=== PATIENT | female | born 1955 | race African-American/Black ===

== ENCOUNTER → 2016-11-11 | Outpatient (CLI) | payer MEDICARE, MEDICAID | LOC: BHSO 09:45 | DX: F06.32 Mood disorder due to known physiological condition with major depressive-like episode (principal) ==

== ENCOUNTER → 2017-02-04 | Outpatient (CLI) | payer MEDICARE, MEDICAID | LOC: BHSO 11:10 | DX: F06.32 Mood disorder due to known physiological condition with major depressive-like episode (principal) ==

== ENCOUNTER → 2017-02-18 | Outpatient (CLI) | payer MEDICARE, MEDICAID | LOC: BHSO 09:30 | DX: F06.32 Mood disorder due to known physiological condition with major depressive-like episode (principal) ==

== ENCOUNTER → 2017-05-12 | Outpatient (CLI) | payer MEDICARE, MEDICAID | LOC: BHSO 09:18 | DX: F41.1 Generalized anxiety disorder (principal) ==

== ENCOUNTER → 2017-09-08 | Outpatient (CLI) | payer MEDICARE, MEDICAID | LOC: BHSO 09:42 | DX: F06.32 Mood disorder due to known physiological condition with major depressive-like episode (principal) ==

== ENCOUNTER → 2017-12-30 | Outpatient (CLI) | payer MEDICARE, MEDICAID | LOC: BHSO 10:05 | DX: F06.32 Mood disorder due to known physiological condition with major depressive-like episode (principal) | CPT/HCPCS: G0463 ==

== ENCOUNTER → 2018-06-08 | Outpatient (CLI) | payer MEDICARE, MEDICAID | LOC: BHSO 09:36 | DX: F06.32 Mood disorder due to known physiological condition with major depressive-like episode (principal) | CPT/HCPCS: G0463 ==

== ENCOUNTER → 2018-08-08 | Outpatient (CLI) | payer MEDICARE, MEDICAID | LOC: MHCPAIN 09:25 | DX: G89.29 Other chronic pain (principal); M47.817 Spondylosis without myelopathy or radiculopathy, lumbosacral region; M54.16 Radiculopathy, lumbar region; M53.3 Sacrococcygeal disorders, not elsewhere classified; M96.1 Postlaminectomy syndrome, not elsewhere classified | CPT/HCPCS: G0463 ==

== ENCOUNTER → 2018-08-31 | Outpatient (CLI) | payer MEDICARE, MEDICAID | LOC: MHCPAIN 09:15 | DX: M47.817 Spondylosis without myelopathy or radiculopathy, lumbosacral region (principal); M54.16 Radiculopathy, lumbar region | CPT/HCPCS: J1040; Q9967 ==

== ENCOUNTER 2022-02-24 07:26 | Day surgery (SDC) | payer MEDICARE, MEDICAID ==
[~2022-02-24] VITALS: Ht 162.6 cm; Wt 52.3 kg
[2022-02-24] MEDS ORDERED: PERCOCET 325 MG1 TAB PO (08:10)
[2022-02-24] MEDS ORDERED: FENTANYL 100MCG TD (08:11)
[2022-02-24 08:20] VITALS: BP 171/113; PULSE 100; TEMP 98.5
[2022-02-24] MEDS ORDERED: WELLBUTRIN SR150 M1 PO (08:28)
[2022-02-24] MEDS ORDERED: MELATONIN5 M1 SL (08:29)
[2022-02-24] MEDS ORDERED: CYMBALTA 60MG60 MG PO (08:31)
[2022-02-24] MEDS ORDERED: VITAMIN B12 PO (08:32)
[2022-02-24] MEDS ORDERED: FOLIC ACID 11 MG/TA1 PO (08:33)
[2022-02-24] MEDS ORDERED: KLONOPIN 1MG1 MG PO (08:33)
[2022-02-24] MEDS ORDERED: OMEGA-3 1000 MG1 CAP PO (08:34)
[2022-02-24] MEDS ORDERED: METAMUCIL3.4 GM/DOS PO (08:34)
[2022-02-24] MEDS ORDERED: NAPROSYN500 MG PO (08:35)
[2022-02-24] MEDS ORDERED: LISINOPRIL PO (08:35)
[2022-02-24] MEDS ORDERED: MYRBETR50MG PO (08:36)
[2022-02-24] MEDS ORDERED: CVS SPECTRAVIT1 EA15 PO (08:36)
[2022-02-24 09:35] VITALS: BP 152/106; PULSE 88; TEMP 96.7
--- NOTE | 2022-02-24 09:35 | NUR ---
Pt arrived from procedure on cart, escorted by Bell FELIZ. Pt is drowsy but oriented. Pt was assisted with ambulating from cart to chair, with minimal difficulty. Warm blankets provided. Vitals obtained. Pt provided hot coffee and a muffin per request. Call maldonado is within reach on side table. Verbal report obtained.
[2022-02-24 09:50] VITALS: BP 168/136; PULSE 88
--- NOTE | 2022-02-24 09:50 | NUR ---
Vitals obtained. is speaking with the pt. Call maldonado remains within reach.
--- NOTE | 2022-02-24 10:05 | NUR ---
Vitals obtained. Call maldonado remains within reach. Pt expressed desire to be discharged home.
--- NOTE | 2022-02-24 10:10 | NUR ---
IV discontinued. Catheter tip intact. Pressure bandage applied. NO redness or swelling noted. DC instructions and educational material reviewed with the pt, who verbalized understanding and signed the related paperwork. Pt denied needing assistance changing into personal clothes and verbalized understanding to use the call maldonado when her son has arrived at the facility.
--- NOTE | 2022-02-24 10:34 | NUR ---
Pt dismissed from endo via wheelchair to the pt entrence by Millie FELIZ. PT has DC packet and personal belongings and was transferred into the care of her son, who is present to drive.
== END 2022-02-24 10:34 | disposition home or self-care (01) ==
LOC: SDCO 07:26
DX: K29.50 Unspecified chronic gastritis without bleeding (principal); K22.4 Dyskinesia of esophagus; K59.00 Constipation, unspecified; R63.4 Abnormal weight loss; R63.0 Anorexia; G89.29 Other chronic pain; Z79.899 Other long term (current) drug therapy
CPT/HCPCS: J2704; J7120

== ENCOUNTER → 2022-04-16 | Outpatient (CLI) | payer MEDICARE, MEDICAID ==
[~2022-04-16] MED LIST: CVS SPECTRAVIT1 EA15 PO; CYMBALTA 60MG60 MG PO; FENTANYL 100MCG TD; FOLIC ACID 11 MG/TA1 PO; KLONOPIN 1MG1 MG PO; LISINOPRIL PO; MELATONIN5 M1 SL; METAMUCIL3.4 GM/DOS PO; MYRBETR50MG PO; NAPROSYN500 MG PO; OMEGA-3 1000 MG1 CAP PO; PERCOCET 325 MG1 TAB PO; VITAMIN B12 PO; WELLBUTRIN SR150 M1 PO
== END ==
LOC: COL.RAD 07:18
DX: K59.00 Constipation, unspecified (principal); R63.4 Abnormal weight loss